=== PATIENT | male | born 1985 | race Hispanic/Latino ===

== ENCOUNTER 2019-09-12 10:19 | Emergency (ER) | payer SELFPAY ==
[2019-09-12 10:37] VITALS: BP 130/90
[2019-09-12] MEDS ORDERED: HYDROcodone/ACETAMINOPHEN 5-325 MG TAB PO ONE (11:35)
[2019-09-12] MEDS ORDERED: IBUPROFEN 800 MG TAB PO ONE (11:35)
--- NOTE | 2019-09-12 11:36 | Emergency Department Report ---
ED Lower Extremity HPI - General Chief Complaint: Extremity Injury, Lower Stated Complaint: R LEG PAIN Time Seen by Provider: 09/12/19 11:30 Source: patient, EMS Mode of arrival: Stretcher Limitations: Physical Limitation - History of Present Illness Initial Comments: 34-year-old male patient presents with complaints of right knee, right ankle, and right hand pain after falling off a lift today at work. Patient admits to head trauma on the left side. He denies any loss of consciousness, headache, vision changes, neck pain, dizziness, nausea/vomiting, or numbness/tingling/weakness in his limbs. He rates his pain as a 7/[address]: work Severity: severe Context: fall - Related Data Previous Rx's Medication Instructions Recorded Last Taken Type Ibuprofen [Motrin 800 MG tab] 800 mg PO Q8HR PRN #21 tablet 09/12/19 Unknown Rx Allergies Allergy/AdvReac Type Severity Reaction Status Date / Time iodine Allergy Unknown Verified 09/12/19 10:30 Penicillins Allergy Unknown Verified 09/12/19 10:30 ED Review of Systems ROS: Stated complaint: R LEG PAIN Other details as noted in HPI Comment: All other systems reviewed and negative Musculoskeletal: as per HPI ED Past Medical Hx - Past Medical History Additional medical history: gout - Surgical History Additional Surgical History: shoulder - Social History Smoking Status: Current Some Day Smoker Substance Use Type: None - Medications Home Medications: Home Medications Medication Instructions Recorded Confirmed Last Taken Type Ibuprofen [Motrin 800 MG tab] 800 mg PO Q8HR PRN #21 tablet 09/12/19 Unknown Rx ED Physical Exam - General Limitations: Physical Limitation General appearance: alert, in no apparent distress - Head Head exam: Present: atraumatic, normocephalic - Eye Eye exam: Present: normal appearance. Absent: scleral icterus - Neck Neck exam: Present: normal inspection, full ROM. Absent: tenderness - Respiratory Respiratory exam: Absent: respiratory distress - Cardiovascular Cardiovascular Exam: Present: regular rate - GI/Abdominal GI/Abdominal exam: Present: soft. Absent: tenderness - Extremities Exam Extremities exam: Present: other (tenderness noted to base of right thumb on the palmar aspect of the hand. Bruising or swelling noted area. Patient has full range of motion of his right hand and fingers with normal perfusion) - Expanded Lower Extremity Exam Right Knee exam: Present: tenderness, swelling (mild). Absent: full ROM, abrasion, ecchymosis, deformity Ankle exam: Present: normal inspection, full ROM. Absent: tenderness, swelling, ecchymosis, deformity - Back Exam Back exam: Present: normal inspection. Absent: paraspinal tenderness, vertebral tenderness ED Course Vital Signs 09/12/19 10:36 Temperature 98.1 F Pulse Rate 69 Respiratory 20 Rate Blood Pressure 130/90 O2 Sat by Pulse 99 Oximetry ED Lower Extremity MDM - Radiology Data Radiology results: report reviewed Right knee x-ray and right hand x-ray are negative for acute bony abnormalities - Medical Decision Making 34-year-old male patient presents with complaints of right knee, right ankle, and right hand pain after falling off a lift today at work. X-rays are negative for any acute bony abnormalities. After ibuprofen and 5 mg of [place], patient now has full range of motion of his right knee. Patient's vitals are normal. Patient is stable for discharge home. Patient given crutches and Wan wrap were right knee. 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 Critical care attestation.: If time is entered above; I have spent that time in minutes in the direct care of this critically ill patient, excluding procedure time. ED Disposition Clinical Impression: Right knee sprain Qualifiers: Encounter type: initial encounter Involved ligament of knee: other ligament Qualified Code(s): S83.8X1A - Sprain of other specified parts of right knee, initial encounter Contusion of right hand Qualifiers: Encounter type: initial encounter Qualified Code(s): S60.221A - Contusion of right hand, initial encounter Disposition: TO HOME OR SELFCARE Is pt being admited?: No Condition: Stable Instructions: Knee Sprain (ED) Prescriptions: Ibuprofen [Motrin 800 MG tab] 800 mg PO Q8HR PRN #21 tablet PRN Reason: pain Referrals: MICHELLE TREVIÑO MD [Staff Physician] - as needed
--- NOTE | 2019-09-12 13:26 | XRay Report ---
RIGHT HAND 3 VIEWS INDICATION / CLINICAL INFORMATION: Base of right thumb pain after fall. COMPARISON: None available. FINDINGS: BONES and JOINT(S): No acute fracture or subluxation. No significant arthritis. SOFT TISSUES: No significant abnormality. ADDITIONAL FINDINGS: None. IMPRESSION: No significant abnormality of the right hand. Signer Name: Kemar Dang MD Signed: 09/12/2019 1:22 PM Workstation Name: [id number]
--- NOTE | 2019-09-12 13:28 | XRay Report ---
LEFT KNEE HISTORY: Screening after fall. COMPARISON: None. TECHNIQUE: 3 views of the left knee obtained. FINDINGS: Bones: No fracture or dislocation. Joint spaces: Maintained. Soft tissues: No significant abnormality. Additional findings: None. IMPRESSION: 1. No significant abnormality. Signer Name: Mihir Frankel MD Signed: 09/12/2019 1:24 PM Workstation Name: [id number]
== END 2019-09-12 13:57 | disposition home or self-care (01) ==
LOC: ED 10:19
DX: S83.8X1A Sprain of other specified parts of right knee, initial encounter (principal); S60.221A Contusion of right hand, initial encounter; F17.200 Nicotine dependence, unspecified, uncomplicated; Z79.899 Other long term (current) drug therapy; Z88.0 Allergy status to penicillin; Z91.041 Radiographic dye allergy status; W01.198A Fall on same level from slipping, tripping and stumbling with subsequent striking against other object, initial encounter; Y93.89 Activity, other specified; Y92.410 Unspecified street and highway as the place of occurrence of the external cause; Y99.8 Other external cause status